=== PATIENT | male | born 1985 | race Caucasian/White ===

== ENCOUNTER → 2016-07-07 | Outpatient (CLI) | payer OTHER ==
[2016-07-07 15:48] LABS: BASOPHILS # (AUTO) 0.04 10*3/UL; BASOPHILS % (AUTO) 0.6 % (0-1); EOSINOPHILS # (AUTO) 0.19 10*3/UL; EOSINOPHILS % (AUTO) 2.7 % (0-8); HEMATOCRIT 43.4 % (42.0-52.0); HEMOGLOBIN 15.2 g/dL (14.0-18.0); LYMPHOCYTES # (AUTO) 2.63 10*3/uL; MEAN CORPUSCULAR HEMOGLOBIN 30.7 PG (27-31); MEAN CORPUSCULAR VOLUME 87.7 FL (80-90); MEAN PLATELET VOLUME 8.9 FL (7.4-12.2); MONOCYTES # (AUTO) 0.57 10*3/UL (0.3-0.8); MONOCYTES % (AUTO) 8.1 % (5-15); NEUTROPHILS # (AUTO) 3.58 10*3/UL; RED BLOOD COUNT 4.95 10^6/uL (4.70-6.10)
[2016-07-07 15:54] LABS: PLATELET MORPHOLOGY COMMENT NORMAL MORPHOLOGY (NORM); RBC MORPHOLOGY COMMENT NORMAL MORPHOLOGY (NORM); WBC MORPHOLOGY COMMENT NORMAL MORPHOLOGY (NORM)
[2016-07-07 16:01] LABS: BLOOD UREA NITROGEN 26 mg/dL (7-22); CALCIUM 9.2 mg/dL (8.7-10.7); CHOL/HDL RATIO 3.29 RATIO (0-4.0); EST GLOMERULAR FILTRATION > 60 (>60 ml/min/1.73m(2)); HDL CHOLESTEROL 58 mg/dL (40-150); SERUM ALBUMIN 4.4 g/dL (3.5-4.8); SERUM CHOLESTEROL 191 mg/dL (120-200)
[2016-07-07 16:24] LABS: FREE T4 (FREE THYROXINE) 1.37 ng/dL (0.93-1.71)
== END ==
LOC: LAB 15:34
PROVIDERS: ATTEND Family Medicine
DX: I10 Essential (primary) hypertension (principal); R00.2 Palpitations; R01.1 Cardiac murmur, unspecified
CPT/HCPCS: 36415; 80053; 80061; 82306; 84439; 84443; 85025

== ENCOUNTER → 2016-07-10 | Outpatient (CLI) | payer OTHER ==
--- NOTE | 2016-07-11 09:28 | DI ---
MRI LUMBAR SPINE SCAN WITHOUT IV CONTRAST, 07/10/2016 2:05 PM: Clinical History: Right sciatica. Previous Exam: None. Technique: Sagittal and axial T2 weighted; sagittal T1 weighted and T2 STIR; and axial PD. The vertebral bodies are of normal height and size. There is disc space narrowing at L3-4 and this is associated with desiccation change. The remaining disc spaces are of normal height and signal patter n. The cord terminates at T11-12, and the conus medullaris is normal. The disc spaces from T11-12 thr ough L2-3 are normal. L3-4 has a grade 1 spondylolisthesis with a bulging but not herniated disc. L4- 5 has a circumferentially bulging but not herniated disc with soft tissue material in the left neural foramen causing left neural foraminal stenosis. This tissue may represent some disc material that ei ther has been extruded and has migrated inferiorly from L3-4, or less likely has migrated superiorly from the L4-5. There is no canal or right neural foraminal stenosis. L5-S1 has a very mild central bu lging but not herniated disc without canal or neural foraminal stenosis. Readin. Suspicion of a small fragment of disc material being located in the left L4-5 neural foramen pote ntially causing impingement on the left L4 nerve root. The soft tissue material may represent a disc fragment that has migrated inferiorly from the L3-4 disc space or possibly superiorly from the L4-5 d isc space. There is no canal or neural foraminal stenosis. 2. There are bulging but not herniated discs without canal or neural foraminal stenosis at L3-4 and L5-S1. L3-4 has a grade 1 spondylolisthesis. 3. Normal disc spaces from T11-12 through L2-3.
== END ==
LOC: MRI 13:57
PROVIDERS: ATTEND Family Medicine
DX: M54.31 Sciatica, right side (principal); M47.817 Spondylosis without myelopathy or radiculopathy, lumbosacral region; M43.16 Spondylolisthesis, lumbar region
CPT/HCPCS: 72148

== ENCOUNTER → 2016-07-23 | Outpatient (CLI) | payer OTHER ==
--- NOTE | 2016-07-23 14:23 | DI ---
XR L-SPINE MIN 4 VW,07/23/2016 11:13 AM: Clinical History: Back pain Previous Exam: MRI lumbar spine performed July 10, 2016 Findings: AP, lateral, flexion and extension views of the lumbar spine are obtained, and demonstrate 15 mm of a nterolisthesis of L3 on L4. This remains unchanged on flexion and extension. There is some gentle levoscoliosis of the upper lumbar spine centered at the L1/2 level. A nonobstructive bowel gas pattern is seen. Vertebral body height is preserved. There is loss of inte rvertebral disc height at the L3/4 level. This is at the area of the anterolisthesis. There appears t o be a pars defect at this level involving the L3 vertebral body. There are bilateral L3 pars defects noted. Impression: 1. 15 mm of anterolisthesis of L3 on L4 with bilateral L3 pars defects. 2. No evidence of instability on flexion and extension of the L3 anterolisthesis.
== END ==
LOC: ORTHO 11:45
PROVIDERS: ATTEND Physician Assistant
DX: M54.5 Low back pain (principal); M47.26 Other spondylosis with radiculopathy, lumbar region; M43.16 Spondylolisthesis, lumbar region
CPT/HCPCS: 72110